=== PATIENT | female | born 1975 | race Caucasian/White ===

== ENCOUNTER → 2018-10-17 | Outpatient (CLI) | payer OTHER ==
[2018-10-17 15:00] LABS: Candida species (DNA Probe) Negative (NEGATIVE); G. vaginalis (DNA Probe) Negative (NEGATIVE); T. vaginalis (DNA Probe) Negative (NEGATIVE)
== END ==
LOC: LAB SHORT 09:50 → LAB 09:50
PROVIDERS: Nurse Practitioner Family
DX: L29.8 Other pruritus (principal); R39.15 Urgency of urination
CPT/HCPCS: 87480; 87510; 87660

== ENCOUNTER → 2018-11-09 | Outpatient (CLI) | payer OTHER ==
[2018-11-13 15:06] LABS: HPV 16 Negative (Negative); HPV 18 Negative (Negative); HPV OTHER HR TYPES Negative (Negative)
== END ==
LOC: LAB 15:20 → LAB SHORT 15:20
PROVIDERS: Nurse Practitioner Family
DX: Z12.4 Encounter for screening for malignant neoplasm of cervix (principal)
CPT/HCPCS: 87624; G0145

== ENCOUNTER → 2025-01-31 | Outpatient (CLI) | payer OTHER ==
[~2025-01-31] MED LIST: ASPI325 PO; Adipex-P37.5 M1 PO; BASAGLAR K100 UNIT/1 SC; CELEXA40 M1 PO; EZET10 PO; IRBE150; IRBE150 PO; LEVSOD75 PO; METF500 PO; STEGLATRO15 MG PO; TOPI50 PO; ZOCOR20 MG PO
[2025-01-31 17:19] LABS: Source, Urine Voided
[2025-01-31 18:23] LABS: Bilirubin, Urine Neg (Neg); Color, Urine Yellow (P-Yellow); Glucose Qualitative, Urine 4+ (Neg); Ketones, Urine Neg (Neg); Leukocyte Esterase, Urine Neg (Neg); Protein, Urine Neg (Neg); Specific Gravity, Urine 1.020 (1.003-1.022); Urobilinogen, Urine NORM (Normal)
== END ==
LOC: LAB 17:18 → LAB SHORT 17:18
PROVIDERS: Physician Assistant
DX: N23 Unspecified renal colic (principal)
CPT/HCPCS: 81003